=== PATIENT | female | born 1940 | race Asian ===

== ENCOUNTER 2016-12-13 00:01 | Emergency (ER) | payer MEDICARE, MEDICAID ==
[2016-12-13 01:28] LABS: Hematocrit 36 % (35-47); Hemoglobin 11.9 g/dl (12.0-16.0); Mean Corpuscular HGB Conc 33 g/dl (31-36); Mean Corpuscular Hemoglobin 30 pg (27-31); Mean Corpuscular Volume 90 fL (80-97); Mean Platelet Volume 8 um3 (7.4-10.4); Red Blood Count 4.02 10^6/ul (4.0-5.4); Red Cell Distribution Width 13 % (10.5-15); White Blood Count 5.2 10^3/ul (3.5-10.8)
[2016-12-13] MEDS ORDERED: Ondansetron INJ* 2 MG/ML VIAL IV ONE (01:31)
[2016-12-13] MEDS ORDERED: NS 0.9% 1000 ML* 1,000 ML IV ONE (01:31)
[2016-12-13] MEDS ORDERED: Meclizine TAB* 12.5 MG PO ONE ×2 (01:31→04:37)
[2016-12-13 01:43] LABS: Albumin 4.1 g/dL (3.2-5.2); BUN/Creatinine Ratio 37.7 (8-20); Calcium 9.1 mg/dL (8.6-10.3); EGFR African American 143.9 (>60); EGFR Non-African American 111.9 (>60); Globulin 2.8 g/dL (2-4); Magnesium 2.3 mg/dL (1.9-2.7); Potassium 3.5 mmol/L (3.5-5.0); Total Bilirubin 0.6 mg/dL (0.2-1.0); Total Protein 6.9 g/dL (6.4-8.9)
[2016-12-13 02:23] LABS: TSH (Thyroid Stimulating Horm) 1.95 mcIU/mL (0.34-5.60)
[2016-12-13] MEDS ORDERED: Iohexol 350* (CONTRAST) 500 ML MDV IV ONE (02:53)
[2016-12-13] MEDS ORDERED: Acetaminophen TAB* 325 MG PO ONE (03:34)
[2016-12-13 04:55] VITALS: BP 115/65
--- NOTE | 2016-12-13 05:04 | ED ---
Kendrick Barrios Benjamin, scribed for Aidee Hendrix MD on 12/13/16 at 0133 . Dizziness - HPI Summary HPI Summary: 76yo female c/o intermittent dizziness since this morning. Pt also reports 5 out of 10 constant TORRES and several vomiting episodes. Pt describes dizziness as room spinning and being off balance. Dizziness gets worse with movement and pt also reports bilateral LE weakness. Denies syncope. Hx of GI bleed 2 yrs ago. - History Of Current Complaint Chief Complaint: EDDizziness Stated Complaint: DIZZINESS Time Seen by Provider: 12/13/16 00:57 Hx Obtained From: Patient Timing: Constant - Allergies/Home Medications Allergies/Adverse Reactions: Allergies Allergy/AdvReac Type Severity Reaction Status Date / Time No Known Allergies Allergy Verified 12/13/16 01:57 PMH/Surg Hx/FS Hx/Imm Hx - Cancer History Hx Chemotherapy: No Hx Radiation Therapy: No Infectious Disease History: No Infectious Disease History: Denies: Traveled Outside the [place] in Last 30 Days Review of Systems Constitutional: Negative Eyes: Negative ENT: Negative Cardiovascular: Negative Respiratory: Negative Positive: Vomiting Genitourinary: Negative Musculoskeletal: Negative Skin: Negative Neurological: Other - dizziness Positive: Headache, Weakness - leg . Negative: Syncope Psychological: Normal All Other Systems Reviewed And Are Negative: Yes Physical Exam Triage Information Reviewed: Yes Vital Signs On Initial Exam: Initial Vitals Temp Pulse Resp BP Pulse Ox 98.0 F 60 17 137/69 100 12/13/16 00:10 12/13/16 00:10 12/13/16 00:10 12/13/16 00:10 12/13/16 00:10 Vital Signs Reviewed: Yes Appearance: Positive: No Pain Distress, Ill-Appearing - moderate Skin: Positive: Warm, Skin Color Reflects Adequate Perfusion, Dry Head/Face: Positive: Normal Head/Face Inspection Eyes: Positive: EOMI, KIRK - left eye, Other: - right pupil nonfunctional. ENT: Positive: Hearing grossly normal, Pharynx normal, TMs normal Neck: Positive: Supple, Nontender Respiratory/Lung Sounds: Positive: Clear to Auscultation, Breath Sounds Present. Negative: Rales, Rhonchi, Wheezes Cardiovascular: Positive: RRR. Negative: Murmur, Rub Abdomen Description: Positive: Nontender, No Organomegaly, Soft. Negative: Distended, Guarding Bowel Sounds: Positive: Present Musculoskeletal: Positive: Strength/ROM Intact. Negative: Edema Left, Edema Right Neurological: Positive: Sensory/Motor Intact, Alert, Oriented to Person Place, Time, CN Intact II-III Psychiatric: Positive: Affect/Mood Appropriate Diagnostics - Vital Signs Vital Signs Temp Pulse Resp BP Pulse Ox 12/13/16 00:10 98.0 F 60 17 137/69 100 - Laboratory Lab Results: Lab Results 12/13/16 12/13/16 12/13/16 Range/Units 01:21 01:21 01:21 WBC 5.2 (3.5-10.8) 10^3/ul RBC 4.02 (4.0-5.4) 10^6/ul Hgb 11.9 L (12.0-16.0) g/dl Hct 36 (35-47) % MCV 90 (80-97) fL MCH 30 (27-31) pg MCHC 33 (31-36) g/dl RDW 13 (10.5-15) % Plt Count 167 (150-450) 10^3/ul MPV 8 (7.4-10.4) um3 Neut % (Auto) 75.8 (38-83) % Lymph % (Auto) 15.4 L (25-47) % [place] % (Auto) 6.8 (1-9) % Eos % (Auto) 0.7 (0-6) % Baso % (Auto) 1.3 (0-2) % Absolute Neuts (auto) 4.0 (1.5-7.7) 10^3/ul Absolute Lymphs (auto) 0.8 L (1.0-4.8) 10^3/ul Absolute Monos (auto) 0.4 (0-0.8) 10^3/ul Absolute Eos (auto) 0 (0-0.6) 10^3/ul Absolute Basos (auto) 0.1 (0-0.2) 10^3/ul Absolute Nucleated RBC 0 10^3/ul Nucleated RBC % 0.1 Sodium 137 (133-145) mmol/L Potassium 3.5 (3.5-5.0) mmol/L Chloride 103 (101-111) mmol/L Carbon Dioxide 30 (22-32) mmol/L Anion Gap 4 (2-11) mmol/L BUN 20 (6-24) mg/dL Creatinine 0.53 (0.51-0.95) mg/dL Est GFR ( Amer) 143.9 (>60) Est GFR (Non-Af Amer) 111.9 (>60) BUN/Creatinine Ratio 37.7 H (8-20) Glucose 111 H (70-100) mg/dL Lactic Acid 0.7 (0.5-2.0) mmol/L Calcium 9.1 (8.6-10.3) mg/dL Magnesium 2.3 (1.9-2.7) mg/dL Total Bilirubin 0.60 (0.2-1.0) mg/dL AST 24 (13-39) U/L ALT 21 (7-52) U/L Alkaline Phosphatase 51 (34-104) U/L Troponin I 0.00 (<0.04) ng/mL Total Protein 6.9 (6.4-8.9) g/dL Albumin 4.1 (3.2-5.2) g/dL Globulin 2.8 (2-4) g/dL Albumin/Globulin Ratio 1.5 (1-3) TSH 1.95 (0.34-5.60) mcIU/mL Result Diagrams: 12/13/16 01:21 12/13/16 01:21 Lab Statement: Any lab studies that have been ordered have been reviewed, and results considered in the medical decision making process. - CT CT Brain CT Interpretation: No Acute Changes CT Interpretation Completed By: Radiologist CTA head/neck CT Interpretation: No Acute Changes CT Interpretation Completed By: Radiologist Dizzy Course/Dx - Course Course Of Treatment: 76 yo female with vertigo, nih scale of zero mild headache no double vision no slurred speech no neck pain no difficulty swallowing, ct brain and cta head and neck negative. [place] better after antivert home with same. - Diagnoses Provider Diagnoses: Vertigo Discharge - Discharge Plan Condition: Stable Disposition: HOME Prescriptions: Meclizine TAB* [Antivert 12.5 TAB*] 25 mg PO TID PRN #[id number] tab PRN Reason: Dizziness Patient Education Materials: Vertigo (ED) Referrals: Donnie Thao MD [Primary Care Provider] - The documentation as recorded by the Kendrick thacker Benjamin accurately reflects the service I personally performed and the decisions made by me, Aidee Hendrix MD.
--- NOTE | 2016-12-13 07:06 | RAD ---
INDICATION: Headaches and vertigo COMPARISON: None TECHNIQUE: Axial source images were acquired with coronal and sagittal reconstructions. CT angiographic technique was utilized with injection of 80 mL Omnipaque 350. FINDINGS: Aortic arch: There are no CT angiogram abnormalities of the arch or the great vessels arising from the arch. Right carotid: The internal carotid artery, carotid bifurcation, extracranial portions of the internal carotid artery, carotid artery at the skull base, carotid siphon, and carotid termination appear normal. Left carotid:The internal carotid artery, carotid bifurcation, extracranial portions of the internal carotid artery, carotid artery at the skull base, carotid siphon, and carotid termination appear normal. Right middle and anterior cerebral arteries: There are no CT angiographic abnormalities of the middle or anterior cerebral arteries. Left middle and anterior cerebral arteries: There are no CT angiographic abnormalities of the middle or anterior cerebral arteries Right vertebral: The CT angiographic appearance of the vertebral artery is normal. Left vertebral: The CT angiographic appearance of the vertebral artery is normal. Basilar artery: The basilar artery and basilar tip appear normal. Posterior cerebral arteries: The distal distribution of the right and left posterior cerebral arteries is normal. [place]: The CT angiographic appearance of the [place] is normal. Incidental note is made of a variant of a origin of the left posterior cerebral artery. Source images show no evidence of mass or adenopathy within the neck. There are no focal parenchymal abnormalities or abnormal areas of enhancement. IMPRESSION: NO SPECIFIC CT ANGIOGRAPHIC ABNORMALITIES. CPT II Codes: 3100F [facility]
--- NOTE | 2016-12-13 07:07 | RAD ---
INDICATION: Vertigo. Headaches. COMPARISON: None TECHNIQUE: Noncontrast axial source images were acquired from the skull base to the vertex. FINDINGS: Ventricles/sulci: The ventricles and cisterns are normal in size and configuration for age. Brain parenchyma: There is no focal parenchymal finding, evidence of intracranial mass, or intracranial mass effect. Intracranial hemorrhage:None. Extra-axial spaces: There are no abnormal extra axial fluid collections or evidence of extra-axial mass. Calvarium: There is no calvarial fracture or other calvarial abnormality. Scalp: There is no evidence of scalp or extracalvarial soft tissue abnormality. Paranasal sinuses/mastoid: The paranasal sinuses and mastoid air cells are clear. Other: Tiny left basal ganglia calcification. IMPRESSION: NEGATIVE EXAMINATION
== END 2016-12-13 04:56 | disposition home or self-care (01) ==
LOC: ED 00:01
DX: R42 Dizziness and giddiness (principal); R51 Headache; R11.10 Vomiting, unspecified; R53.1 Weakness
CPT/HCPCS: 36415; 70450; 70496; 70498; 80053; 83605; 83735; 84443; 84484; 85025; 93005; 96361; 96374; 99282; A9270-GY; J2405; Q9967